=== PATIENT | male | born 1960 | race Caucasian/White ===

== ENCOUNTER → 2018-02-16 09:05 | Outpatient (CLI) | payer OTHER, SELFPAY ==
[2018-02-16 10:06] LABS: Add Manual Diff / Slide Review NO; Basophils Percent Auto 0.4 % (0-2); Eosinophils Percent Auto 1.6 % (2-4); Hematocrit 46.1 % (41-53); Lymphocytes Percent Auto 38.1 % (25-40); Mean Corpuscular HGB Conc 34.8 % (30-36); Mean Corpuscular Hemoglobin 32.4 PG (26-34); Mean Corpuscular Volume 93.1 fL (80-100); Monocytes Percent Auto 6.4 % (3-14); Neutrophils Absolute Auto 2800 /uL (3000-5900); Neutrophils Percent Auto 53.5 % (50-75); Platelet Count 204 X10^3/uL (150-400); Red Blood Cell Count 4.95 X10^6/uL (4.5-5.9); Red Cell Distribution Width 13.1 % (11.6-14.8); White Blood Cell Count 5.3 X10^3/uL (4.5-11.0)
[2018-02-16 10:14] LABS: Alanine Aminotransferase 37 IU/L (21-72); Albumin 4.3 g/dL (3.5-5.0); Albumin Globulin Ratio 1.5 (1.0-2.8); Alkaline Phosphatase 56 U/L (38-126); Aspartate Aminotransferase 34 IU/L (17-59); BUN Creatinine Ratio 16.3 (6-22); Bilirubin Total 1.1 mg/dL (0.2-1.3); Blood Urea Nitrogen 13 mg/dL (9-20); Calcium 9.8 mg/dL (8.4-10.2); Carbon Dioxide 33 mmol/L (22-32); Chloride 102 mmol/L (98-107); Estimated Glomerular Filt Rate > 60.0 mL/min (>60); Globulin 2.9 g/dL (1.7-4.1); Glucose 120 mg/dL (70-100); HEMOLYSIS < 15 (0-50); Potassium 4.2 mmol/L (3.4-5.1); Sodium 141 mmol/L (137-145); Total Protein 7.2 g/dL (6.3-8.2)
== END ==
PROVIDERS: Family Provider Family Medicine; PCP Family Medicine
DX: K21.9 Gastro-esophageal reflux disease without esophagitis (principal)
CPT/HCPCS: 36415; 80053; 83013; 85025

== ENCOUNTER 2018-05-31 08:48 | Day surgery (SDC) | payer OTHER, SELFPAY ==
--- NOTE | 2018-05-31 | PATH_ITS ---
[facility] Accession Number: [id number] . 01 Material submitted: . PART A: DISTAL DUODENUM LESION PART B: PROXIMAL DUODENUM LESION . 02 Diagnosis: A. Distal Duodenum Lesion: Superficial portion of small bowel mucosa with dilated lacteals. Please see comment. Negative for granulomas, active inflammation, dysplasia, and malignancy. . B. Proximal Duodenum Lesion: Superficial portion of duodenal mucosa with dilated lacteals. Please see comment. Negative for granulomas, active inflammation, dysplasia, and malignancy. MRV/06/01/2018 . 02 Comment: A, B. Dilated lacteals are not specific, but may be due to lymphangiectasia or may be indicative of an upstream or downstream lymphatic obstruction due to scar, inflammation, or neoplasm. . My colleague, Dr. Dominguez, reviewed these slides and concurs with this interpretation. . 02 Electronically signed: . Elana Ingram MD, Pathologist NPI- [id number] . 01 Gross description: . Received two formalin-filled containers, both labeled with the patient's name: . A. In a container labeled distal duodenum, the specimen consists of a 0.2 cm portion of tissue, entirely submitted in cassette A. B. In a container labeled proximal duodenum, the specimen consists of two 0.1-0.2 cm portions of tissue, entirely submitted in cassette B. ([id number]) /FRR . 02 Pathologist provided ICD-10: K31.9 . 02 CPT . 587870, [id number] Performed at: [address] [facility], [place], [place] [id number] MD Maximo Knight MD Phone: [phone] Performed at: 02 [facility] [place] [address] [place] [id number] MD Thais Dominguez MD Phone: [phone]
[2018-05-31 09:00] VITALS: BP 139/70; PULSE 58; RESP 16; TEMP 36.8; O2SAT 96; BMI 26.5
[2018-05-31] MEDS: SODIUM CHLORIDE 0.9% 1,000 ML 42 ML IV (09:23)
--- NOTE | 2018-05-31 09:46 | PM.HP.1 ---
History of Present Illness Chief complaint: [id number] Patient History Medical History GE reflux (Acute) Family & Social History Social History: household members spouse Tobacco & Substance use: Smoking Status Never smoker alcohol intake never Meds Home Medications Medication Instructions Recorded Confirmed Type lansoprazole 15 mg capsule,delayed 15 mg PO DAILY 02/16/18 02/16/18 History release Allergies Allergy/AdvReac Type Severity Reaction Status Date / Time No Known Drug Allergies Allergy Verified 02/16/18 08:29 Exam Vital Signs (past 8 hours): - 05/31/18 09:00 Temperature 98.3 F Pulse Rate 58 L Respiratory Rate 16 Blood Pressure 139/70 Pulse Oximetry 96 Oxygen Delivery Method Room Air Narrative Exam Narrative: Oropharynx free of lesions Chest clear to auscultation percussion Cardiac exam reveals no S3 or murmur Assessment & Plan Plan: Assessment/Plan Narrative: Longstanding GE reflux with poor response to medications. Rule out non healed esophagitis. Rule out Echevarria's esophagus. Need for EGD. Risks benefits and alternatives have been explained.
--- NOTE | 2018-05-31 10:23 | PM.OP.ENDO ---
Operative Date/Time/Diagnoses Date of procedure: 05/31/18 Time of procedure: 10:23 Pre-op diagnosis: See indication and findings Procedure & Clinicians Study performed: EGD Same procedure as scheduled: Yes Indications: Reflux poorly responsive to medications Surgeon: Amy Edwards Procedure Notes Procedure in detail: After informed consent was obtained the patient was placed in left lateral decubitus position. The video upper scope was placed into the oropharynx with the patient's help swallowed into the esophagus. The esophagus stomach and duodenum were carefully examined. On withdrawal retroflexed view of the GE junction was performed. The scope was removed. The patient tolerated the procedure well. Blood loss none Complications none Sedation Versed 7 mg, fentanyl 150 mcg Sedation time 13 min Findings 1. Esophagus with normal squamocolumnar junction though with fairly wide open lower esophageal sphincter. 2. 2 cm hiatal hernia present, possibly sliding 3. Mild patchy erythema in the distal stomach 4. Two polypoid structures in D2. One was in which were villous than the other. Neither greater than 5 mm. Probably represent focal collection of lymphangiectasia and the more proximal of the 2 had a white milky colored fluid extruded when biopsied and removed. Patient should try double dose Prilosec before breakfast and dinner with ranitidine 300 mg q.h.s.. He will then return to see Dr. Agudelo discuss whether not perform 24 hr impedance study to check whether residual symptoms are actually due to reflux.
[2018-05-31 10:41] VITALS: BP 131/71; PULSE 55; RESP 15; TEMP 36.3; O2SAT 94
[2018-05-31 10:47] VITALS: BP 105/74; PULSE 54; RESP 10; O2SAT 94
[2018-05-31 10:51] VITALS: BP 102/65; PULSE 63; RESP 11; O2SAT 96
[2018-05-31 10:56] VITALS: BP 115/80; PULSE 69; RESP 11; TEMP 36.3; O2SAT 97
--- NOTE | 2018-05-31 11:04 | SUR.PHASEI ---
stable pacu stay
[2018-05-31 11:06] VITALS: BP 121/71; PULSE 77; RESP 16; TEMP 36.6; O2SAT 99
--- NOTE | 2018-05-31 11:43 | SUR.PHASEII ---
dr cao spoke at length with pt and his in laws about d/c instructions. all voiced an uinderstanding. pt dressed and left when ready and left in stable condition.
== END 2018-05-31 11:30 | disposition home or self-care (01) ==
PROVIDERS: Family Provider Family Medicine; PCP Family Medicine; Visit Provider Internal Medicine Gastroenterology
PROC: 0DJ08ZZ Inspection of Upper Intestinal Tract, Via Natural or Artificial Opening Endoscopic (ICD-10-PCS; CPT 43235; principal; 2018-05-31 10:00)
DX: K31.9 Disease of stomach and duodenum, unspecified (principal); K21.9 Gastro-esophageal reflux disease without esophagitis; R05 Cough; K44.9 Diaphragmatic hernia without obstruction or gangrene
CPT/HCPCS: 43239

== ENCOUNTER → 2020-01-25 15:09 | Outpatient (CLI) | payer OTHER, SELFPAY ==
[2020-01-27 11:36] LABS: COVID19 Sendout Not Detected (Not Detected)
== END ==
PROVIDERS: Family Provider Family Medicine; PCP Student in an Organized Health Care Education/Training Program; Visit Provider Physician Assistant
DX: Z01.818 Encounter for other preprocedural examination (principal)
CPT/HCPCS: 87635

== ENCOUNTER → 2020-02-13 14:51 | Outpatient (CLI) | payer OTHER, SELFPAY ==
--- NOTE | 2020-02-13 14:53 | DI.RAD.S_ITS ---
PROCEDURE: XR THORACIC SPINE 3V INDICATIONS: Persistant upper back pain TECHNIQUE: 3 views of the thoracic spine were acquired. COMPARISON: None. FINDINGS: Bones: No fractures or dislocations. No suspicious bony lesions. Lateral curvature of the spine. Soft tissues: No paravertebral stripe thickening. IMPRESSION: No fracture Dictated by: Braulio Crane M.D. on 02/13/2020 at 16:57 Approved by: Braulio Crane M.D. on 02/13/2020 at 16:58
[2020-02-13 15:03] LABS: Bacteria Urine None Seen; RBC Urine None Seen (0-5/HPF)
[2020-02-13 16:21] LABS: Erythrocyte Sedimentation Rate 1 MM/HR (0-15)
[2020-02-13 16:27] LABS: Appearance Urine UA CLEAR; Bilirubin Urine UA NEGATIVE (NEGATIVE); Color Urine UA YELLOW; Glucose Urine UA NEGATIVE (Negative); Ketones Urine UA NEGATIVE (NEGATIVE); Leukocyte Esterase Urine UA NEGATIVE (NEGATIVE); Nitrite Urine UA NEGATIVE (Negative); Occult Blood Urine UA NEGATIVE (Negative); Protein Urine UA NEGATIVE (Negative); Urobilinogen Urine UA 0.2 E.U./dL (0.2)
[2020-02-13 16:33] LABS: BUN Creatinine Ratio 23.5 (6-22); Blood Urea Nitrogen 19 mg/dL (9-20); Calcium 10.4 mg/dL (8.4-10.2); Carbon Dioxide 32 mmol/L (22-32); Chloride 101 mmol/L (98-107); Cholesterol 181 mg/dL (140-199); Estimated Glomerular Filt Rate > 60.0 mL/min (>60); Glucose 106 mg/dL (70-100); HDL Cholesterol 70 mg/dL (40-60); HEMOLYSIS < 15 (0-50); LDL Cholesterol Calculated 80 mg/dL (<100); Potassium 4.3 mmol/L (3.4-5.1); Sodium 138 mmol/L (137-145); Triglycerides 154 mg/dL (35-150)
[2020-02-13 16:34] LABS: C-Reactive Protein Quant < 0.5 mg/dL (<1.0)
[2020-02-13 16:39] LABS: Culture Indicated Urine Cult Not Indicated; Mucus Urine 1+ (Negative); Squamous Epithelial Cell Urine 0-1 /HPF (0-5/HPF); WBC Urine 0-1/HPF (0-5/HPF)
[2020-02-13 17:01] LABS: Prostate Specific Antigen Scrn 1.54 ng/mL (0.1-4.0)
== END ==
PROVIDERS: Family Provider Family Medicine; PCP Student in an Organized Health Care Education/Training Program; Referring Provider Student in an Organized Health Care Education/Training Program; Visit Provider Student in an Organized Health Care Education/Training Program
DX: G89.29 Other chronic pain (principal); M54.6 Pain in thoracic spine; N20.0 Calculus of kidney; R20.2 Paresthesia of skin; Z12.5 Encounter for screening for malignant neoplasm of prostate; R35.0 Frequency of micturition; Z13.220 Encounter for screening for lipoid disorders
CPT/HCPCS: 36415; 72072; 80048; 80061; 81001; 84100; 85651; 86140; G0103

== ENCOUNTER → 2020-02-18 13:40 | Outpatient (CLI) | payer OTHER, SELFPAY ==
--- NOTE | 2020-02-18 13:41 | DI.US.S_ITS ---
PROCEDURE: US RENAL COMPLETE INDICATIONS: BLADDER DISCOMFORT TECHNIQUE: Real-time scanning was performed of the kidneys and bladder, with image documentation. COMPARISON: [facility], CT, KIDNEY/ URETER/BLADDER, 01/20/2014, 2:28. [facility], CT, KIDNEY/ URETER/BLADDER, 05/16/2016, 16:30. FINDINGS: Kidneys: Evaluation of the left kidney is limited by overlying bowel gas. Kidneys are normal in size. Right kidney measures 11.4 cm long; left kidney measures 12 cm long. Right renal cortical thickness is 1.2 cm; left renal cortical thickness is 1.5 cm. Renal cortical echotexture is normal. No nephrolithiasis. No suspicious solid mass lesions. There is an apparent extrarenal pelvis seen on the right. Bladder: Pre-void bladder volume is 561 mL. Post-void residual is 7 mL. Pre-void images demonstrate no intraluminal masses or stones. On pre-void images, both ureteral jets are noted with color Doppler interrogation. (Of note, ureteral jets may not be detectable in up to 25% of cases due to insufficient differences in specific gravity between ureteral and bladder urine). Miscellaneous: No free pelvic fluid. IMPRESSION: No significant bladder abnormality is seen. Mild postvoid residual, 7 cc. Likely right kidney extrarenal pelvis. Dictated by: Sandeep Martinez M.D. on 02/18/2020 at 14:03 Approved by: Sandeep Martinez M.D. on 02/18/2020 at 14:04
== END ==
PROVIDERS: Family Provider Family Medicine; PCP Student in an Organized Health Care Education/Training Program; Referring Provider Student in an Organized Health Care Education/Training Program; Visit Provider Student in an Organized Health Care Education/Training Program
DX: R35.0 Frequency of micturition (principal); R39.89 Other symptoms and signs involving the genitourinary system; N20.0 Calculus of kidney
CPT/HCPCS: 76770

== ENCOUNTER 2020-04-29 05:16 | Emergency (ER) | payer OTHER, SELFPAY ==
[2020-04-29 05:20] VITALS: BP 148/83; PULSE 70; RESP 20; TEMP 36.6; O2SAT 96; BMI 24.3
--- NOTE | 2020-04-29 05:53 | ED_ITS ---
HPI - Abdominal Pain General Chief Complaint: Abdominal Pain Stated Complaint: Severe Constipation Time Seen by Provider: 04/29/20 05:37 Source: patient Mode of arrival: Ambulatory Limitations: no limitations History of Present Illness HPI narrative: The patient presents with lower abdominal pain, complaining of constipation. He has had only small bowel movements in the last 5 days, describing leading not only hortencia the last day. He has had no nausea vomiting. He has suprapubic abdominal pain. With his he has had minimal urine output, but he knows he has not been drinking much. He has no testicular pain. He denies BPH, he has previously been on Flomax due to poor flow. He denies headache, sore throat or fever. He has no chest discomfort. He has no cough or dyspnea. Related Data Home Medications Medication Instructions Recorded Confirmed acetaminophen 160 mg/5 mL oral 960 mg PO QID PRN 04/17/19 02/13/20 suspension omeprazole 20 mg capsule,delayed 20 mg PO DAILY 07/13/19 02/13/20 release Previous Rx's Medication Instructions Recorded tamsulosin 0.4 mg capsule 0.4 mg PO DAILY #90 cap 07/13/19 tamsulosin [Flomax] 0.4 mg PO DAILY #30 cap 04/29/20 Allergies Allergy/AdvReac Type Severity Reaction Status Date / Time No Known Drug Allergies Allergy Verified 04/29/20 05:29 Review of Systems Constitutional Constitutional: Denies chills, Denies fever(s) and Denies headache(s) ENT Ears, Nose, Mouth, and Throat: Denies headache(s) and Denies sore throat Cardiovascular Cardiovascular: Denies chest pain and Denies dyspnea Respiratory Respiratory: Denies chest congestion, Denies cough and Denies dyspnea Gastrointestinal Gastrointestinal: Reports as per HPI, Reports abdominal pain, Reports constipation, Denies nausea and Denies vomiting Genitourinary Genitourinary: Reports as per HPI, Reports difficulty urinating and Denies dysuria Genitourinary: Reports as per HPI and Denies dysuria Musculoskeletal Musculoskeletal: Denies back pain Integumentary/Breasts Skin/Breast: Denies erythema and Denies rash Neurologic Neurologic: Denies headache(s) Patient History Medical History GE reflux (Acute) Social History household members: spouse Smoking Status: Never smoker alcohol intake: never Smoking Status: Never smoker alcohol intake frequency: other Substance Use Type: does not use Exam Initial Vital Signs Initial Vital Signs: Vital Signs Temperature 97.8 F 04/29/20 05:20 Pulse Rate 70 04/29/20 05:20 Respiratory Rate 20 04/29/20 05:20 Blood Pressure 148/83 H 04/29/20 05:20 Pulse Oximetry 96 04/29/20 05:20 Const General: cooperative and well developed Nutritional Appearance: well nourished Cardio Rate: regular rate Rhythm: regular rhythm Heart Sounds: S1 normal, S2 normal and no murmurs GI Other: Suprapubic distention with tenderness. No distinct, palpable masses. Normal bowel sounds. Upper abdomen is benign. Rectal exam reveals moderate BPH. He has impaction. I could not remove the stool. Skin General: no rashes or lesions noted, No jaundice and No petechiae Neuro General: patient alert, patient oriented x3, gait normal and no focal motor deficits Speech: speech normal Extrem General: no pedal edema and no calf tenderness Course Course Course Narrative: A bladder scan was done, the patient initially had 400 mL PVR. He was able to urinate again, releasing a significant amount of urine. His abdominal discomfort has improved. An enema was given for the constipation. I large BM was obtained. He is feeling dramatically better. Orders Ordered: Discontinued Medications Sodium Biphosphate/Sodium Phosphate (Fleet Enema) 1 each NV NOW ONE Stop: 04/29/20 06:54 Last Admin: 04/29/20 07:10 Dose: 1 each Documented by: BELEN Tamsulosin HCl (Flomax) 0.4 mg PO NOW ONE Stop: 04/29/20 06:54 Last Admin: 04/29/20 07:09 Dose: 0.4 mg Documented by: BELEN Vital Signs Vital signs: Vital Signs - 8 hr 04/29/20 05:20 Temperature 97.8 F Pulse Rate 70 Respiratory Rate 20 Blood Pressure 148/83 H Pulse Oximetry 96 Discharge Plan Departure Patient Disposition: Home Clinical Impression: Benign prostatic hyperplasia Qualifiers: Lower urinary tract symptom presence: symptoms present Lower urinary tract symptom detail: weak urinary stream Qualified Code(s): N40.1 - Benign prostatic hyperplasia with lower urinary tract symptoms Constipation Qualifiers: Constipation type: slow transit constipation Qualified Code(s): K59.01 - Slow transit constipation Instructions: Benign Prostatic Hyperplasia, DI for Constipation Activity Restrictions/Additional Instructions: Drink plenty of water. She would be on high-fiber diet. Flomax 1 tablet daily. The prescription has been electronically forwarded to [facility]'s pharmacy. I would recommend follow-up with Urology, I will give you contact information for Dr. Jang. Prescriptions: New tamsulosin [Flomax] 0.4 mg capsule 0.4 mg PO DAILY Qty: 30 RF: 0 No Action tamsulosin [Flomax] 0.4 mg capsule 0.4 mg PO DAILY Qty: 90 RF: 3 omeprazole 20 mg capsule,delayed release(DR/EC) 20 mg PO DAILY RF: 0 acetaminophen ['s Tylenol] 160 mg/5 mL suspension 960 mg PO QID PRNRF: 0 Referrals: Ottoniel Benson MD [Primary Care Provider] - Anne Jang MD [Physician] -
[2020-04-29] MEDS: TAMSULOSIN 0.4 MG CAPSULE PO (07:09)
[2020-04-29] MEDS: FLEETS ENEMA 1 EACH PR (07:10)
--- NOTE | 2020-04-29 07:50 | PC.NURSE ---
Patient retained enema for approximately 10 minutes. Patient activated call light and the nurse collected a very large stool. Patient reports he feel better. Abdominal pain has resolved. Provider notified and put patient up for discharge.
[2020-04-29 07:59] VITALS: BP 138/81; PULSE 78; RESP 14; TEMP 35.5; O2SAT 99
== END 2020-04-29 08:01 | disposition home or self-care (01) ==
PROVIDERS: Emergency Provider Emergency Medicine; Family Provider Family Medicine; PCP Student in an Organized Health Care Education/Training Program
DX: N40.1 Benign prostatic hyperplasia with lower urinary tract symptoms (principal); K59.01 Slow transit constipation; R33.9 Retention of urine, unspecified
CPT/HCPCS: 51798; 99283

== ENCOUNTER → 2020-10-13 07:19 | Outpatient (CLI) | payer OTHER, SELFPAY ==
[2020-10-13 07:47] LABS: COVID19 -Nasal RAPID Negative (Negative)
== END ==
PROVIDERS: Family Provider Family Medicine; PCP Student in an Organized Health Care Education/Training Program; Referring Provider Physician Assistant; Visit Provider Physician Assistant
DX: J34.89 Other specified disorders of nose and nasal sinuses (principal); R05 Cough; R50.9 Fever, unspecified
CPT/HCPCS: 87635

== ENCOUNTER → 2021-10-02 10:49 | Outpatient (CLI) | payer OTHER, SELFPAY ==
[2021-10-02 12:04] LABS: Blood Urea Nitrogen 20 mg/dL (9-20); Calcium 9.5 mg/dL (8.4-10.2); Carbon Dioxide 30 mmol/L (22-32); Chloride 102 mmol/L (98-107); Estimated Glomerular Filt Rate > 60.0 mL/min (>60); Glucose 99 mg/dL (80-110); HEMOLYSIS < 15 (0-50); Phosphorous 3.6 mg/dL (2.3-3.7); Potassium 4.3 mmol/L (3.4-5.1); Sodium 139 mmol/L (137-145)
[2021-10-02 12:35] LABS: Prostate Specific Antigen Scrn 1.36 ng/mL (0.1-4.0)
== END ==
PROVIDERS: Family Provider Family Medicine; PCP Student in an Organized Health Care Education/Training Program; Referring Provider Student in an Organized Health Care Education/Training Program; Visit Provider Student in an Organized Health Care Education/Training Program
DX: N20.0 Calculus of kidney (principal); Z12.5 Encounter for screening for malignant neoplasm of prostate
CPT/HCPCS: 36415; 80048; 84100; G0103

== ENCOUNTER → 2021-10-16 07:44 | Outpatient (CLI) | payer OTHER, SELFPAY ==
--- NOTE | 2021-10-16 07:46 | DI.RAD.S_ITS ---
PROCEDURE: XR CHEST 2V INDICATIONS: cough TECHNIQUE: 2 views of the chest were acquired. COMPARISON: None. FINDINGS: Surgical changes and devices: None. Lungs and pleura: Lungs are clear. No pleural effusions or pneumothorax. Mediastinum: Mediastinal contours are normal. Heart size is normal. Bones and chest wall: No suspicious bony abnormalities. Soft tissues appear unremarkable. IMPRESSION: No acute cardiopulmonary disease process. Dictated by: Gladys Obregon MD, PhD on 10/16/2021 at 8:03 Approved by: Gladys Obregon MD, PhD on 10/16/2021 at 8:03
== END ==
PROVIDERS: Family Provider Family Medicine; PCP Student in an Organized Health Care Education/Training Program; Referring Provider Nurse Practitioner Family; Visit Provider Nurse Practitioner Family
DX: R05.9 Cough, unspecified (principal)
CPT/HCPCS: 71046

== ENCOUNTER → 2022-05-09 12:39 | Outpatient (CLI) | payer OTHER, SELFPAY ==
[2022-05-09 13:22] LABS: Influenza A - CEPHEID Flu A NEGATIVE (NEGATIVE); Influenza B - CEPHEID Flu B NEGATIVE (NEGATIVE); Respiratory Syncytial Virus Negative (Negative)
[2022-05-09 13:26] LABS: COVID-19 CEPHEID 4-PLEX PCR Negative (Negative)
== END ==
PROVIDERS: Family Provider Family Medicine; PCP Student in an Organized Health Care Education/Training Program; Visit Provider Physician Assistant
DX: R05.9 Cough, unspecified (principal)
CPT/HCPCS: 0241U

== ENCOUNTER → 2023-05-27 07:24 | Outpatient (CLI) | payer OTHER, SELFPAY ==
[2023-05-27 10:04] LABS: Add Manual Diff / Slide Review NO; Basophils Absolute Auto 0 /uL (0-100); Basophils Percent Auto 0.3 % (0-2); Eosinophils Absolute Auto 100 /uL (0-450); Eosinophils Percent Auto 1.6 % (2-4); Hematocrit 42.9 % (41-53); Hemoglobin 14.5 g/dL (13.5-17.5); Lymphocytes Absolute Auto 1900 /uL (1100-4500); Lymphocytes Percent Auto 36.1 % (25-40); Mean Corpuscular HGB Conc 33.8 % (30-36); Mean Corpuscular Hemoglobin 31.1 PG (26-34); Mean Corpuscular Volume 91.9 fL (80-100); Monocytes Absolute Auto 400 /uL (0-900); Monocytes Percent Auto 7.7 % (3-14); Neutrophils Absolute Auto 2800 /uL (1500-7000); Neutrophils Percent Auto 54.3 % (50-75); Platelet Count 185 X10^3/uL (150-400); Red Blood Cell Count 4.67 X10^6/uL (4.5-5.9); White Blood Cell Count 5.1 X10^3/uL (4.5-11.0)
[2023-05-27 10:11] LABS: Alanine Aminotransferase 40 IU/L (<50); Albumin 4.1 g/dL (3.5-5.0); Albumin Globulin Ratio 1.5 (1.0-2.8); Alkaline Phosphatase 59 U/L (38-126); Aspartate Aminotransferase 31 IU/L (17-59); Bilirubin Total 1.3 mg/dL (0.2-1.3); Blood Urea Nitrogen 28 mg/dL (9-20); Calcium 9.8 mg/dL (8.4-10.2); Carbon Dioxide 32 mmol/L (22-32); Chloride 101 mmol/L (98-107); Cholesterol 188 mg/dL (140-199); Estimated Glomerular Filt Rate > 60 mL/min (>60); Globulin 2.7 g/dL (1.7-4.1); Glucose 93 mg/dL (80-110); HDL Cholesterol 64 mg/dL (40-60); HEMOLYSIS < 15 (0-50); LDL Cholesterol Calculated 109 mg/dL (<100); Potassium 4.3 mmol/L (3.4-5.1); Sodium 136 mmol/L (137-145); Total Protein 6.8 g/dL (6.3-8.2); Triglycerides 74 mg/dL (35-150)
[2023-05-27 10:41] LABS: Prostate Specific Antigen 2.13 ng/mL (0.10-4.00)
== END ==
PROVIDERS: Family Provider Family Medicine; PCP Student in an Organized Health Care Education/Training Program; Referring Provider Student in an Organized Health Care Education/Training Program; Visit Provider Student in an Organized Health Care Education/Training Program
DX: N40.0 Benign prostatic hyperplasia without lower urinary tract symptoms (principal)
CPT/HCPCS: 36415; 80053; 80061; 84153; 85025

== ENCOUNTER → 2023-11-23 18:17 | Outpatient (CLI) | payer OTHER, SELFPAY ==
[2023-11-23 19:46] LABS: Influenza A - CEPHEID Flu A NEGATIVE (NEGATIVE); Influenza B - CEPHEID Flu B NEGATIVE (NEGATIVE); Respiratory Syncytial Virus Negative (Negative)
[2023-11-23 19:51] LABS: COVID-19 CEPHEID 4-PLEX PCR Negative (Negative)
== END ==
PROVIDERS: Family Provider Family Medicine; PCP Student in an Organized Health Care Education/Training Program; Visit Provider Physician Assistant Surgical
DX: J02.9 Acute pharyngitis, unspecified (principal); R05.9 Cough, unspecified
CPT/HCPCS: 0241U; 87070

== ENCOUNTER → 2023-12-18 11:10 | Outpatient (CLI) | payer OTHER, SELFPAY ==
--- NOTE | 2023-12-18 11:12 | DI.RAD.S_ITS ---
PROCEDURE: XR CHEST 2V INDICATIONS: Persistent cough TECHNIQUE: 2 views of the chest were acquired. COMPARISON: (A 2021 prior chest radiograph is not available for review from the archive at the time of this dictation.) FINDINGS: Surgical changes and devices: None. Lungs and pleura: Lungs are clear. No pleural effusions or pneumothorax. Mediastinum: The cardiac contours are within normal limits. The aorta demonstrates calcification and tortuosity. Bones and chest wall: No suspicious bony abnormalities. Accentuated thoracic kyphosis is seen. Age-appropriate bony degenerative changes are seen. Soft tissues appear unremarkable. IMPRESSION: No focal infiltrates are seen. No acute cardiopulmonary abnormality is seen. Dictated by: Sandeep Martinez M.D. on 12/18/2023 at 10:33 Approved by: Sandeep Martinez M.D. on 12/18/2023 at 10:39
== END ==
PROVIDERS: Family Provider Family Medicine; PCP Student in an Organized Health Care Education/Training Program; Referring Provider Physician Assistant Surgical; Visit Provider Physician Assistant Surgical
DX: R05.9 Cough, unspecified (principal); J02.9 Acute pharyngitis, unspecified
CPT/HCPCS: 71046; 87070

== ENCOUNTER → 2023-12-18 11:18 | Outpatient (CLI) | payer OTHER, SELFPAY | PROVIDERS: Family Provider Family Medicine; PCP Student in an Organized Health Care Education/Training Program; Visit Provider Physician Assistant Surgical | DX: J02.9 Acute pharyngitis, unspecified (principal) | CPT/HCPCS: 87070 ==

== ENCOUNTER → 2024-12-19 08:55 | Outpatient (CLI) | payer OTHER, SELFPAY ==
--- NOTE | 2024-12-19 08:58 | DI.RAD.S_ITS ---
PROCEDURE: XR LUMBAR SPINE 3V INDICATIONS: BILAT FEET NUMBNESS TECHNIQUE: 3 views of the lumbar spine were acquired. COMPARISON: None. FINDINGS: Degenerative changes with disc space narrowing, osteophytes, facet osseous hypertrophic changes most notably L4-5 and L5-S1. No radiographic evidence of fracture, subluxation. Degenerative changes of the bilateral hips and sacroiliac joints partially imaged. No radiographic evidence of fracture, subluxation. IMPRESSION: Degenerative changes. If symptoms persist or worsen, or there is high clinical suspicion of lumbar abnormality, MRI could be performed. Dictated by: Brad Putnam M.D. on 12/19/2024 at 11:13 Approved by: Brad Putnam M.D. on 12/19/2024 at 11:19
== END ==
PROVIDERS: Family Provider Family Medicine; PCP Family Medicine; Referring Provider Family Medicine; Visit Provider Family Medicine
DX: M47.26 Other spondylosis with radiculopathy, lumbar region (principal); M47.27 Other spondylosis with radiculopathy, lumbosacral region; M47.28 Other spondylosis with radiculopathy, sacral and sacrococcygeal region
CPT/HCPCS: 72100

== ENCOUNTER 2025-06-26 21:07 | Emergency (ER) | payer MEDICARE, OTHER, SELFPAY ==
[2025-06-26 21:10] VITALS: BP 157/76; PULSE 57; RESP 14; TEMP 36.8; O2SAT 99; BMI 25.8
[2025-06-26 21:53] LABS: Add Manual Diff / Slide Review NO; Hematocrit 42.6 % (41-53); Hemoglobin 14.7 g/dL (13.5-17.5); Lymphocytes Absolute Auto 1500 /uL (1100-4500); Mean Corpuscular HGB Conc 34.4 % (30-36); Mean Corpuscular Hemoglobin 31.8 PG (26-34); Mean Corpuscular Volume 92.5 fL (80-100); Platelet Count 200 X10^3/uL (150-400)
[2025-06-26 21:57] LABS: Alanine Aminotransferase 39 IU/L (<50); Albumin 4.2 g/dL (3.5-5.0); Albumin Globulin Ratio 1.4 (1.0-2.8); Alkaline Phosphatase 69 U/L (38-126); Blood Urea Nitrogen 19 mg/dL (9-20); Calcium 9.4 mg/dL (8.4-10.2); Carbon Dioxide 28 mmol/L (22-32); Chloride 102 mmol/L (98-107); Estimated Glomerular Filt Rate > 60 mL/min (>60); Globulin 2.9 g/dL (1.7-4.1); Glucose 106 mg/dL (70-99); HEMOLYSIS 48 (0-50); Potassium 4.4 mmol/L (3.4-5.1); Sodium 136 mmol/L (137-145); Total Protein 7.1 g/dL (6.3-8.2)
[2025-06-26] MEDS: ONDANSETRON 4 MG/2 ML INJ IV (22:08)
--- NOTE | 2025-06-26 22:20 | DI.CT.S_ITS ---
PROCEDURE: CT ABDOMEN PELVIS WO CON INDICATIONS: r/o stone TECHNIQUE: CT of the abdomen and pelvis was obtained without intravenous contrast. Coronal and sagittal reformats were performed. For radiation dose reduction, the following was used: automated exposure control, adjustment of mA and/or kV according to patient size. COMPARISON: None. FINDINGS: Image quality: Diagnostic Lower chest: Unremarkable lung bases. Mildly patulous distal esophagus. Possible small hiatal hernia Liver: No contour deforming mass. Solid organs are not well assessed without IV contrast. Gallbladder and biliary system: Unremarkable, nondilated Pancreas: No ductal dilation Spleen: Nonenlarged Adrenals: 1.1 cm left adrenal adenoma. Kidneys: Extrarenal pelvis seen bilaterally. No obstructing calcified stone. A 4 mm nonobstructing left mid region calculus is present. No contour deforming solid mass. Vessels and lymph nodes: No abdominal aortic aneurysm. No enlarged lymph nodes by size criteria Bowel and peritoneum: No bowel obstruction. No drainable abscess or ascites. Moderate overall colonic fecal loading. Focal wall thickening versus peristalsis seen at the hepatic flexure. No significant appendix inflammation seen Body wall: Unremarkable Pelvis: Under distended urinary bladder. Reproductive organs are unremarkable on limited CT evaluation Bones: Mild lumbosacral degenerative changes. No aggressive appearing osseous abnormality. IMPRESSION: No hydronephrosis or obstructing calcified stone. A 4 mm left mid region nonobstructing renal calculus is seen. Moderate overall colonic fecal loading. A focal area of wall thickening and narrowing is seen in the colonic hepatic flexure, which could represent peristalsis. Colonoscopy however is suggested, if not recently obtained to exclude possibility of underlying mass. Suspect 1.1 cm left adrenal adenoma. Other findings above. Dictated by: Kahlil Estrada M.D. on 06/26/2025 at 22:54 Approved by: Kahlil Estrada M.D. on 06/26/2025 at 22:59
[2025-06-26] MEDS: KETOROLAC 30 MG/ML VIAL IV (22:25)
[2025-06-26 22:40] LABS: Appearance Urine UA CLEAR; Bilirubin Urine UA NEGATIVE (NEGATIVE); Color Urine UA YELLOW; Glucose Urine UA NEGATIVE (Negative); Ketones Urine UA NEGATIVE (NEGATIVE); Leukocyte Esterase Urine UA NEGATIVE (NEGATIVE); Nitrite Urine UA NEGATIVE (Negative); Occult Blood Urine UA NEGATIVE (Negative); Protein Urine UA NEGATIVE (Negative); Specific Gravity Urine UA <=1.005 (1.000-1.035); Urobilinogen Urine UA 1.0 E.U./dL (0.2); pH Urine UA 7.0 (4.5-8.0)
[2025-06-26 22:48] LABS: Culture Indicated Urine Cult Not Indicated
[2025-06-26 23:41] VITALS: BP 141/70; PULSE 60; RESP 18; TEMP 36.5; O2SAT 98
--- NOTE | 2025-06-29 11:18 | ED.MALEGU ---
HPI - Male Genitourinary General Chief complaint: Urogenital-Male Stated complaint: Kidney stone Time Seen by Provider: 06/26/25 21:32 Source: patient Mode of arrival: Ambulatory History of Present Illness HPI Narrative: Patient is a 65 year old male with one day history of right flank pain. Past medical history significant for nephrolithiasis x 2 with spontaneous expulsion, BPH on flomax. He has taken naproxen and mucinex with acetaminophen. Denies any fevers, chills, nausea, vomiting. No hematuria, dysuria. Has frequency. Related Data Home Medications ?Medication ?Instructions ?Recorded ?Confirmed pantoprazole 40 mg tablet,delayed mg PO 06/06/25 06/06/25 release Previous Rx's ?Medication ?Instructions ?Recorded tamsulosin 0.4 mg capsule 0.4 mg PO DAILY #90 caps 08/20/24 gabapentin 300 mg capsule 300 mg PO DIRECTED #90 caps 06/06/25 ondansetron 4 mg disintegrating 4 mg PO Q8H PRN nausea and 06/26/25 tablet vomiting #10 tabs Allergies Allergy/AdvReac Type Severity Reaction Status Date / Time No Known Drug Allergies Allergy Verified 06/26/25 21:20 Review of Systems Review of Systems Narrative: See HPI. Patient History Medical History Paresthesia Benign prostatic hyperplasia Bilateral tinnitus Social History household members: spouse Smoking Status: Unknown if ever smoked alcohol intake: never Smoking Status: Unknown if ever smoked alcohol intake frequency: other Exam Narrative Exam Narrative: Vitals: Afebrile, hypertensive, all other vitals within normal ranges. Gen: Well developed, well nourished, in no acute distress. Cards: Bradycardic, no murmurs, rubs, or gallops. Pulm: Normal work of breathing. Clear to auscultation bilaterally. Abd: Nondistended, nontender to palpation. No CVA tenderness bilaterally. Ext: No peripheral edema in bilaterally lower extremity. Neuro: A&Ox4, cranial nerved grossly intact, moving all 4 extremities spontaneously. Psych: Appropriate. Initial Vital Signs Initial Vital Signs: Vital Signs Temperature 98.3 F 06/26/25 21:10 Pulse Rate 57 L 06/26/25 21:10 Respiratory Rate 14 06/26/25 21:10 Blood Pressure 157/76 H 06/26/25 21:10 Pulse Oximetry 99 06/26/25 21:10 Oxygen Delivery Method Room Air 06/26/25 21:10 Course Orders Ordered: Discontinued Medications Ketorolac Tromethamine (Ketorolac 30 Mg/Ml Vial) 30 mg IV NOW ONE Stop: 06/26/25 22:21 Last Admin: 06/26/25 22:25 Dose: 30 mg Documented By: KAPIL Ondansetron HCl (Ondansetron 4 Mg/2 Ml Inj) 4 mg IV NOW PRN PRN Reason: Nausea And Vomiting Last Admin: 06/26/25 22:08 Dose: 4 mg Documented By: KAPIL MDM - Male Genitourinary Lab Data 06/26/25 21:31 06/26/25 21:31 Labs: Lab Results 06/26/25 06/26/25 Range/Units 21:31 22:30 WBC 6.8 (4.5-11.0) X10^3/uL RBC 4.61 (4.5-5.9) X10^6/uL Hgb 14.7 (13.5-17.5) g/dL Hct 42.6 (41-53) % MCV 92.5 (80-100) fL MCH 31.8 (26-34) PG MCHC 34.4 (30-36) % RDW 13.3 (11.6-14.8) % Plt Count 200 (150-400) X10^3/uL Neut % (Auto) 64.8 (50-75) % Lymph % (Auto) 21.7 L (25-40) % [place] % (Auto) 9.0 (3-14) % Eos % (Auto) 3.0 (2-4) % Baso % (Auto) 1.5 (0-2) % Neut # (Auto) 4400 (2282-5238) /uL Lymph # (Auto) 1500 (0359-0056) /uL [place] # (Auto) 600 (0-900) /uL Eos # (Auto) 200 (0-450) /uL Baso # (Auto) 100 (0-100) /uL Sodium 136 L (137-145) mmol/L Potassium 4.4 (3.4-5.1) mmol/L Chloride 102 (98-107) mmol/L Carbon Dioxide 28 (22-32) mmol/L BUN 19 (9-20) mg/dL Creatinine 0.77 (0.66-1.25) mg/dL Estimated GFR > 60 (>60) mL/min BUN/Creatinine Ratio 24.7 H (6-22) Glucose 106 H (70-99) mg/dL Calcium 9.4 (8.4-10.2) mg/dL Total Bilirubin 0.6 (0.2-1.3) mg/dL AST 34 (17-59) IU/L ALT 39 (<50) IU/L Alkaline Phosphatase 69 (38-126) U/L Total Protein 7.1 (6.3-8.2) g/dL Albumin 4.2 (3.5-5.0) g/dL Globulin 2.9 (1.7-4.1) g/dL Albumin/Globulin Ratio 1.4 (1.0-2.8) Urine Color Yellow Urine Appearance Clear Urine pH 7.0 (4.5-8.0) Ur Specific [place] <=1.005 (1.000-1.035) Urine Protein Negative (Negative) Urine Glucose (UA) Negative (Negative) g/dL Urine Ketones Negative (NEGATIVE) Urine Occult Blood Negative (Negative) Urine Nitrate Negative (Negative) Urine Bilirubin Negative (NEGATIVE) Urine Urobilinogen 1.0 (0.2) E.U./dL Ur Leukocyte Esterase Negative (NEGATIVE) Urine RBC None seen (0-5/HPF) Urine WBC None seen (0-5/HPF) Ur Squamous Epith Cells 0-1 /hpf (0-5/HPF) Urine Bacteria None seen (None) Ur Culture Indicated? Cult not indicated Vol Urine Centrifuged 10ml (spun) Imaging Data CT scan - abdomen/pelvis: Radiologist's Impression: PROCEDURE: CT ABDOMEN PELVIS WO CON INDICATIONS: r/o stone TECHNIQUE: CT of the abdomen and pelvis was obtained without intravenous contrast. Coronal and sagittal reformats were performed. For radiation dose reduction, the following was used: automated exposure control, adjustment of mA and/or kV according to patient size. COMPARISON: None. FINDINGS: Image quality: Diagnostic Lower chest: Unremarkable lung bases. Mildly patulous distal esophagus. Possible small hiatal hernia Liver: No contour deforming mass. Solid organs are not well assessed without IV contrast. Gallbladder and biliary system: Unremarkable, nondilated Pancreas: No ductal dilation Spleen: Nonenlarged Adrenals: 1.1 cm left adrenal adenoma. Kidneys: Extrarenal pelvis seen bilaterally. No obstructing calcified stone. A 4 mm nonobstructing left mid region calculus is present. No contour deforming solid mass. Vessels and lymph nodes: No abdominal aortic aneurysm. No enlarged lymph nodes by size criteria Bowel and peritoneum: No bowel obstruction. No drainable abscess or ascites. Moderate overall colonic fecal loading. Focal wall thickening versus peristalsis seen at the hepatic flexure. No significant appendix inflammation seen Body wall: Unremarkable Pelvis: Under distended urinary bladder. Reproductive organs are unremarkable on limited CT evaluation Bones: Mild lumbosacral degenerative changes. No aggressive appearing osseous abnormality. IMPRESSION: No hydronephrosis or obstructing calcified stone. A 4 mm left mid region nonobstructing renal calculus is seen. Moderate overall colonic fecal loading. A focal area of wall thickening and narrowing is seen in the colonic hepatic flexure, which could represent peristalsis. Colonoscopy however is suggested, if not recently obtained to exclude possibility of underlying mass. Suspect 1.1 cm left adrenal adenoma. MDM Narrative Medical decision making narrative: 65 year old man with a history of nephrolithiasis who presents with sudden onset of right flank pain and frequency or urination. Differential diagnosis: Nephrolithiasis, pyelonephritis, UTI, perinephric hematoma, AAA, renal artery embolism renal vein thrombosis, renal cell carcinoma, other. Labs: CBC without leukocytosis or left shift, no anemia, thrombocytopenia. CMP largely benign. LFTs normal. Urinalysis not consistent with UTI. Imaging: CT with 4mm nonobstructing mid ureteral stone iwth incidental findings of 1.1cm left adrenal adenoma. EKG: Not indicated Consults: None ED course: The patient presented to the ED hypertensive, with all other vital signs within normal limits. Physical examination was benign, with no focal neurologic deficits, no CVA tenderness, and no abdominal tenderness to palpation. Laboratory studies were not concerning for systemic infection, and there was no evidence of leukocytosis or renal dysfunction. CT imaging demonstrated a 4 mm mid-ureteral stone, with no signs of obstruction, infection, or other acute complications. I discussed with the patient that a stone of this size has a high likelihood of spontaneous passage, and that her clinical stability further supported conservative management. Given the absence of fever, well controlled pain, no evidence of UTI or systemic infection, and stone size favorable for medical expulsive therapy, the patient was discharged with conservative management, including hydration, analgesia (he has ibuprofen at home), and return precautions. A referral to urology was provided should symptoms worsen or if the stone fails to pass. The patient remained stable throughout her ED stay and was discharged in improved condition. Discharge Plan Departure Patient Disposition: Home Clinical Impression: Kidney stone Instructions: DI for Kidney Stones Activity Restrictions/Additional Instructions: You were seen in the emergency department for low back pain and nausea. In the ER: -- You were given anti nausea medication as well as toradol (an NSAID) for pain -- CT scan revealed a 4 mm sewn in the mid region of your right ureter. -- There was also an incidental finding of a 1.1 cm left adrenal adenoma. Please follow up with your primary care physician for further recommendation on workup. -- Your labs were not consistent with sepsis or systemic infection. Urinalysis was negative for a urinary tract infection or an infected stone. Recommendation: -- Continue Flomax as previously prescribed as this may help with stone passage (medical expulsion therapy). -- Take ibuprofen 650mg every 6-8 hours as needed for pain -- You have been prescribed Zofran to take as needed for nausea -- Strain your urine so that you know when you have passed her stone -- Return to the ER if you develop fevers, worsening pain, vomiting or any other concerning signs or symptoms You have been given a referral to Urology. Follow up if you have any concerns. Thanks for allowing me to be part of your care team today. Kyleigh Baca! - Dr De Leon Prescriptions: New ondansetron 4 mg tablet,disintegrating 4 mg PO Q8H PRN (Reason: nausea and vomiting) Qty: 10 0RF No Action tamsulosin 0.4 mg capsule 0.4 mg PO DAILY Qty: 90 0RF pantoprazole 40 mg tablet,delayed release (/EC) PO gabapentin 300 mg capsule 300 mg PO DIRECTED Qty: 90 2RF Rx Instructions: take 1 cap each evening. may taper up as discussed. MDD 4 caps tid. Referrals: Ronaldo Chase DO [Physician, Urology] Referral Note: 4mm nonobstructing right mid ureteral stone Bhavin Grace MD [Primary Care Provider, Family Practice] Stand Alone Forms: Patient Portal/API
== END 2025-06-26 23:43 | disposition home or self-care (01) ==
PROVIDERS: Emergency Provider Student in an Organized Health Care Education/Training Program; PCP Family Medicine
DX: N20.0 Calculus of kidney (principal); Z87.442 Personal history of urinary calculi
CPT/HCPCS: 36415; 74176; 80053; 81001; 85025; 96374; 96375; 99284; J1885; J2405